=== PATIENT | female | born 1950 | race Caucasian/White ===

== ENCOUNTER → 2016-09-21 | Outpatient (CLI) | payer MEDICARE ==
[~2016-09-21] MED LIST: ALBUTEROL17 GM INH; ALPRAZOLAM PO; AMIODARONE; AMOXICILLIN500 M1 PO; CALCIUM 500 +1 EAC2 PO; CLEOCIN150 MG; DAYPRO600 M1; DEXAMETHASONE4 MG PO; DICLOFENAC PO; FLEXERIL PO; FLEXERIL10 MG; FOSAMAX70 MG PO; LOPRESSOR PO; LORTAB 5-325 M1 EACH PO; LOVASTATIN10 MG PO; NEURONTIN100 MG PO; PERCOCET; PHENERGAN25 MG; SERTRALINE HCL100 M1 PO; WARFARIN SODIUM3 M1 PO; ZOLOFT100 MG; ZYRTEC10 M2 PO
--- NOTE | ~2016-09-21 | CT57 ---
[facility] A Service of [facility] & [facility] RADIOLOGY TEXT RESULTS PATIENT: TRINA MONTERROSO LOCATION: [facility] : 51 UNIT #: [id number] AGE: [address]: Kevin Ellsworth MD SEX: F ORDER DR: [id number] [address] [address] [id number] O MR#: [id number] Acc #: [id number] NAME: TRINA MONTERROSO : 1950 SEX: F STUDY DATE/TIME: 09/21/2016 13:34 UNIT: [facility] ROOM: STUDY DESCRIPTION: CT Chest Wo Cont Attending Physician: Kevin Ellsworth M.D. Referring Physician: Kevin Ellsworth M.D. Ordering Physician: Kevin Ellsworth M.D. Primary Care Physician: Kevin Ellsworth M.D. MEDICAL IMAGING REPORT This report is preliminary unless electronic signature is present. EXAM Chest CT no contrast 09/21/2016 INDICATIONS Lung mass on recent chest x-ray. History of pneumonia in June. No history of malignancy. TECHNIQUE Noncontrast CT of the chest was performed. Correlation is made with chest x-ray 09/17/2016. This CT exam was performed with one or more of the following radiation dose reduction techniques: automatic exposure control, adjustment of mA and/or kV according to patient size, and iterative reconstruction. FINDINGS CT Chest: Examination is abnormal. There is a cavitary mass in the superior segment of the right lower lobe with an air-fluid level within it. The posterior margin of the mass abuts the pleura. The mass is of mixed attenuation on CT without calcifications. Dimension 6.8 x 7.9 x 8.1 cm. The mass has enlarged compared to a more distant chest x-ray performed in July 2016. While this could potentially represent a worsening pulmonary infection such as a pulmonary abscess, findings may also reflect primary bronchogenic carcinoma and cavitating malignancy related to tumor necrosis or squamous cell carcinoma. The superior medial margin of the mass is intimately associated with the lower lobe bronchus and bronchoscopy would likely yield additional diagnostic information. Despite the size of the mass, there is no significant adenopathy in the mediastinum. There are subcentimeter short-axis lymph nodes in the mediastinum and hilar stations. Probable trace fluid in the pericardial recess. PET CT may ultimately be useful for further assessment based upon bronchoscopy results. [facility] A Service of [facility] & [facility] RADIOLOGY TEXT RESULTS PATIENT: TRINA MONTERROSO LOCATION: [facility] : 51 UNIT #: [id number] AGE: [address]: Kevin Ellsworth MD SEX: F ORDER DR: Included thyroid unremarkable. No pericardial effusion or axillary adenopathy. Aorta demonstrates no aneurysm. Included upper abdomen is unremarkable. The left lung is clear. There are tiny calcified granulomas. No pleural effusion. There is mild emphysema. Osseous structures demonstrate no suspicious bone lesion. IMPRESSION 1. Abnormal examination demonstrating a cavitary mass in the right lower lobe measuring up to 8.1 cm. Differential considerations include both inflammatory/infectious etiologies such as pulmonary abscess or potentially primary bronchogenic carcinoma as described above. Granulomatous disease including tuberculosis felt to be less likely. Bronchoscopy would likely be useful for further assessment and complementary for reasons described above along with potentially a PET CT based upon bronchoscopy findings. 2. No significant adenopathy identified. 3. Background changes of mild emphysema and old healed granulomatous disease. 1. Dictated by... Michael Bell M.D. THIS IS AN ELECTRONICALLY VERIFIED REPORT Michael Bell M.D. at 09/22/2016 5:03 PM An TD: 09/22/2016 09:34 JOB #: [id number] MEDICAL IMAGING REPORT Page 1 of 1
== END | disposition home or self-care (01) ==
LOC: SCT 13:23
DX: R91.8 Other nonspecific abnormal finding of lung field (principal)
CPT/HCPCS: 71250

== ENCOUNTER → 2016-10-13 | Outpatient (CLI) | payer MEDICARE ==
--- NOTE | ~2016-10-13 | CR71 ---
[facility] A Service of [facility] & [facility] RADIOLOGY TEXT RESULTS PATIENT: TRINA MOTNERROSO LOCATION: [facility] : 51 UNIT #: [id number] AGE: [address]: Warren Vizcaino MD SEX: F ORDER DR: [id number] [facility] [address] [place], [place] [address] [id number] O MR#: [id number] Acc #: [id number] NAME: TRINA MONTERROSO. : 1950 SEX: F STUDY DATE/TIME: 10/13/2016 9:14 UNIT: [facility] ROOM: STUDY DESCRIPTION: CR Chest Single View Attending Physician: Warren Vizcaino M.D., Ph.D. Ordering Physician: Warren Vizcaino M.D., Ph.D. Primary Care Physician: Kevin Ellsworth M.D. MEDICAL IMAGING REPORT This report is preliminary unless electronic signature is present EXAM Portable chest, one-view HISTORY Status post right lung biopsy. COMPARISON Chest radiograph dated 09/17/2016. FINDINGS Findings are normal. No evidence of pneumothorax following right lung nodule aspiration. Dictated by... Navi Del Toro M.D. THIS IS AN ELECTRONICALLY VERIFIED REPORT Navi Del Toro M.D. at 10/18/2016 10:40 AM LESLEE/juan m TD: 10/13/2016 11:56 JOB #: [id number] MEDICAL IMAGING REPORT Page 1 of 1 COPY
--- NOTE | ~2016-10-13 | CT134 ---
[facility] A Service of [facility] & [facility] RADIOLOGY TEXT RESULTS PATIENT: TRINA MONTERROSO LOCATION: [facility] : 51 UNIT #: [id number] AGE: [address]: Warren Vizcaino MD SEX: F ORDER DR: [id number] [facility] [address] [place], [place] [address] [id number] O MR#: [id number] Acc #: [id number] NAME: TRINA MONTERROSO : 1950 SEX: F STUDY DATE/TIME: 10/13/2016 7:57 UNIT: [facility] ROOM: STUDY DESCRIPTION: CT Guide Attending Physician: Warren Vizcaino M.D., Ph.D. Ordering Physician: Warren Vizcaino M.D., Ph.D. Primary Care Physician: Kevin Ellsworth M.D. MEDICAL IMAGING REPORT This report is preliminary unless electronic signature is present EXAM CT-guided lung aspiration 10/13/2016 HISTORY Cystic lung mass. PROCEDURE Informed consent was obtained. A skin site was selected with CT guidance. Fentanyl and Versed were administered for IV conscious sedation with hemodynamic monitoring provided by the nursing staff throughout the procedure. After sterile preparation, draping, local anesthesia, a Yueh needle catheter was used and gross pus was aspirated from a cystic right lung mass. About 60 mL of gross pus was aspirated and a specimen sent for microbiologic evaluation. There are no immediate postprocedure complications. Total sedation time 15 minutes. IMPRESSION 1. Successful CT-guided aspiration from a cystic right lung mass with aspiration of about 60 mL of gross pus. Specimen sent for microbiologic evaluation. There were no immediate complications. 2. Because of the nature of the aspirate no core specimen was obtained at this time. Dictated by... Navi Del Toro M.D. THIS IS AN ELECTRONICALLY VERIFIED REPORT Navi Del Toro M.D. at 10/18/2016 10:39 AM LESLEE/kerry TD: 10/13/2016 15:19 JOB #: [id number] [facility] A Service of [facility] & [facility] RADIOLOGY TEXT RESULTS PATIENT: TRINA MONTERROSO LOCATION: [facility] #: [id number] : 51 UNIT #: [id number] AGE: [address]: Warren Vizcaino MD SEX: F ORDER DR: MEDICAL IMAGING REPORT Page 1 of 1 COPY
[2016-10-13 06:19] LABS: HEMATOCRIT 36.1 % (35.0-45.0); HEMOGLOBIN 11.7 gm/dL (12.0-16.0); MEAN CELL VOLUME 82.5 FL (83-96); MEAN CORPUSCULAR HEMOGLOBIN 26.6 PG (28-34); MEAN CORPUSCULAR HGB CONC 32.2 g/dL (30-36); MEAN PLATELET VOLUME 7.7 FL (6.5-11.5); RED BLOOD COUNT 4.38 X10e (3.90-5.30); RED CELL DISTRIBUTION WIDTH 15.5 % (11.0-15.5); WHITE BLOOD COUNT 29.5 X10e3 (4.0-10.5)
[2016-10-13 06:31] LABS: INR 1.1; PARTIAL THROMBOPLASTIN TIME 28.5 SECONDS (23.5-31.3); PROTHROMBIN TIME (PATIENT) 11.3 SECONDS (9.6-11.5)
== END | disposition home or self-care (01) ==
LOC: CIVR 05:45
PROVIDERS: Internal Medicine Hematology & Oncology
DX: C34.31 Malignant neoplasm of lower lobe, right bronchus or lung (principal); J44.9 Chronic obstructive pulmonary disease, unspecified; Z88.1 Allergy status to other antibiotic agents; Z88.5 Allergy status to narcotic agent; Z91.012 Allergy to eggs
CPT/HCPCS: 36415; 71010; 77012; 85027; 85610; 85730; 87070; 87205; J2250; J3010

== ENCOUNTER → 2016-11-15 | Outpatient (CLI) | payer MEDICARE ==
--- NOTE | ~2016-11-15 | CR63 ---
[facility] A Service of [facility] & [facility] RADIOLOGY TEXT RESULTS PATIENT: TRINA MONTERROSO LOCATION: [facility] : 51 UNIT #: [id number] AGE: [address]: Warren Vizcaino MD SEX: F ORDER DR: [id number] [facility] [address] [place], [place] [address] [id number] O MR#: [id number] Acc #: [id number] NAME: TRINA MONTERROSO. : 1950 SEX: F STUDY DATE/TIME: 11/15/2016 12:35 UNIT: [facility] ROOM: STUDY DESCRIPTION: CR Chest 2 View Attending Physician: Warren Vizcaino M.D., Ph.D. Referring Physician: Warren Vizcaino M.D., Ph.D. Ordering Physician: Warren Vizcaino M.D., Ph.D. Primary Care Physician: Kevin Ellsworth M.D. MEDICAL IMAGING REPORT This report is preliminary unless electronic signature is present EXAM Chest 2 views 11/15/2016 1235 hours HISTORY Follow up abnormal chest x-ray with right-sided mass or infection. Pneumonia June 13, 2016 COMPARISON Chest x-ray 10/13/2016, PET CT 10/11/2016. FINDINGS Upright PA and lateral views of the chest demonstrate normal cardiac, mediastinal and hilar contours. The area of rounded well circumscribed mass like density in the right midlung is again demonstrated. It measures 9.3 x 9.2 cm increased from 8.5 x 7.2 cm on 09/17/2016 and measurement 7.3 x 6.3 cm on 10/13/2016. There is now clear air fluid level within this structure. The lungs are otherwise clear and there is no dependent pleural effusion. This right lung lesion was aspirated under CT guidance yielding grossly purulent material suggesting this is most likely an abscess although a necrotic infected tumor could have this appearance. IMPRESSION Interval increase in the rounded soft tissue masslike structure with air-fluid level in the supra segment right lower lobe since the film of 10/13/2016, 07/16/2016 and 09/2016. A clear air fluid level is present. It currently measures 9.2 x 9.2 x 8.4 cm, previously 7.3 x 6.3 cm on 10/13/2016. CT aspirate on 10/13/2016 yielded grossly purulent material. Ongoing lung abscess is favored although a necrotic tumor could have this appearance. There is no adenopathy or pleural fluid elsewhere. The lungs are otherwise clear. Dictated by... Perla Maza M.D. [facility] A Service of [facility] RADIOLOGY TEXT RESULTS PATIENT: TRINA MONTERROSO [id number] 51 UNIT #: [id number] AGE: [address]: Warren Vizcaino MD SEX: F ORDER DR: THIS IS AN ELECTRONICALLY VERIFIED REPORT Perla Maza M.D. at 11/16/2016 2:31 PM Neema TD: 11/15/2016 13:05 JOB #: [id number] MEDICAL IMAGING REPORT Page 1 of 1 COPY
== END | disposition home or self-care (01) ==
LOC: CRAD 12:17
DX: C34.31 Malignant neoplasm of lower lobe, right bronchus or lung (principal); R91.8 Other nonspecific abnormal finding of lung field
CPT/HCPCS: 71020

== ENCOUNTER → 2016-12-24 | Outpatient (CLI) | payer MEDICARE, OTHER ==
--- NOTE | ~2016-12-24 | CR63 ---
[facility] A Service of [facility] & [facility] RADIOLOGY TEXT RESULTS PATIENT: TRINA MONTERROSO LOCATION: [facility] : 51 UNIT #: [id number] AGE: [address]: Keke Gaines APRN SEX: F ORDER DR: [id number] [facility] [address] [place], [place] [address] [id number] O MR#: [id number] Acc #: [id number] NAME: TRINA MONTERROSO : 1950 SEX: F STUDY DATE/TIME: 12/24/2016 12:18 UNIT: [facility] ROOM: STUDY DESCRIPTION: CR Chest 2 View Attending Physician: Keke Gaines A.P.R.N. Referring Physician: Keke Gaines A.P.R.N. Ordering Physician: Keke Gaines A.P.R.N. Primary Care Physician: Kevin Ellsworth M.D. MEDICAL IMAGING REPORT This report is preliminary unless electronic signature is present EXAM PA and lateral chest. HISTORY Lung cancer. Postop lung surgery, 1 month ago. FINDINGS Opacification of the lower two-thirds of the right hemithorax with air-fluid level in the right upper chest. Increasing volume of fluid in the right hemithorax as compared to 12/10/2016. Findings suggest right pneumonectomy. No aerated right lung is identified. Slightly increased mediastinal shift to the right since the prior exam. New mild patchy subsegmental infiltrate in the inferolateral left lower lung. Although, nonspecific this could be due to subsegmental pneumonia. Left subclavian pacer leads extend into the region of the right atrium and the right ventricle. IMPRESSION 1. New mild subsegmental patchy infiltrate or atelectasis in the inferolateral left lower lung compared to 12/10/2016. 2. Increasing volume of fluid in the right hemithorax with air-fluid level at the upper third of the right hemithorax. Findings could be secondary to right pneumonectomy. No aerated right lung is identified. Slightly increased mediastinal shift to the right compared to the prior exam. Dictated by... Chepe Gould M.D. THIS IS AN ELECTRONICALLY VERIFIED REPORT Chepe Gould M.D. at 12/25/2016 10:08 PM [facility] A Service of [facility] RADIOLOGY TEXT RESULTS PATIENT: TRINA MONTERROSO LOCATION: [facility] #: [id number] : 51 UNIT #: [id number] AGE: [address]: Keke Gaines APRN SEX: F ORDER DR: Lilia TD: 12/25/2016 17:16 JOB #: [id number] MEDICAL IMAGING REPORT Page 1 of 1 COPY
== END | disposition home or self-care (01) ==
LOC: CRAD 11:57
DX: C34.90 Malignant neoplasm of unspecified part of unspecified bronchus or lung (principal)
CPT/HCPCS: 71020

== ENCOUNTER → 2016-12-30 | Outpatient (CLI) | payer MEDICARE, OTHER ==
--- NOTE | ~2016-12-30 | CR63 ---
[facility] A Service of [facility] RADIOLOGY TEXT RESULTS PATIENT: TRINA MONTERROSO LOCATION: [facility] : 51 UNIT #: [id number] AGE: [address]: Thor Cross MD SEX: F ORDER DR: [id number] [facility] [address] [place], [place] [address] [id number] O MR#: [id number] Acc #: [id number] NAME: TRINA MONTERROSO : 1950 SEX: F STUDY DATE/TIME: 12/31/2016 UNIT: [facility] ROOM: STUDY DESCRIPTION: CR Chest 2 View Attending Physician: Thor Cross M.D. Referring Physician: Thor Cross M.D. Ordering Physician: Thor Cross M.D. Primary Care Physician: Kevin Ellsworth M.D. MEDICAL IMAGING REPORT This report is preliminary unless electronic signature is present EXAM Chest 2 views 12/30/2016 1242 hours. HISTORY Right pneumonectomy for right lung carcinoma. Cough and congestion for 8 months. COMPARISON 12/27/2016 FINDINGS Upright PA and lateral views of the chest demonstrate the right pneumonectomy change with appropriate shift of heart and mediastinum to the right. There is air-fluid level in the upper right hemithorax similar to prior study. Patchy density in the left midlung has decreased. IMPRESSION 1. Stable right pneumonectomy surgical changes. 2. Hyperinflation of the left lung with near complete resolution of patchy airspace density from the mid to lower lung, as compared to 12/27/2016. No left effusion is seen. Dictated by... Perla Maza M.D. THIS IS AN ELECTRONICALLY VERIFIED REPORT Perla Maza M.D. at 12/31/2016 2:31 PM Candice TD: 12/31/2016 12:51 JOB #: [id number] [facility] A Service of [facility] RADIOLOGY TEXT RESULTS PATIENT: TRINA MONTERROSO [id number] : 51 UNIT #: [id number] AGE: [address]: Thor Cross MD SEX: F ORDER DR: MEDICAL IMAGING REPORT Page 1 of 1 COPY
[2016-12-30 12:44] LABS: HEMATOCRIT 38.1 % (35.0-45.0); HEMOGLOBIN 12.3 gm/dL (12.0-16.0); MEAN CELL VOLUME 86.2 FL (83-96); MEAN CORPUSCULAR HEMOGLOBIN 27.7 PG (28-34); MEAN CORPUSCULAR HGB CONC 32.2 g/dL (30-36); MEAN PLATELET VOLUME 8.4 FL (6.5-11.5); RED BLOOD COUNT 4.42 X10e (3.90-5.30); RED CELL DISTRIBUTION WIDTH 18.2 % (11.0-15.5); WHITE BLOOD COUNT 18.2 X10e3 (4.0-10.5)
[2016-12-30 13:08] LABS: BUN/CREATININE RATIO 18.88; CALCIUM SERUM 9.5 mg/dL (8.4-10.2); CREATININE SERUM 0.9 mg/dL (0.6-1.4); GLOM FILT RATE Estimated 67.1 mL/min (>60); POTASSIUM 4.2 mmol/L (3.5-5.1)
== END | disposition home or self-care (01) ==
LOC: CLAB 11:33
PROVIDERS: Surgery
DX: J18.9 Pneumonia, unspecified organism (principal); J98.4 Other disorders of lung; Z90.2 Acquired absence of lung [part of]
CPT/HCPCS: 36415; 71020; 80048; 85027; 87070; 87205

== ENCOUNTER → 2017-02-01 | Outpatient (CLI) | payer MEDICARE, OTHER ==
--- NOTE | ~2017-02-01 | BD1 ---
[facility] A Service of [facility] & [facility] RADIOLOGY TEXT RESULTS PATIENT: TRINA MONTERROSO LOCATION: [facility] : 51 UNIT #: [id number] AGE: [address]: Kevin Ellsworth MD SEX: F ORDER DR: [id number] [facility] [address] [place], [place] [address] [id number] O MR#: [id number] Acc #: [id number] NAME: TRINA MONTERROSO : 1950 SEX: F STUDY DATE/TIME: 02/01/2017 12:01 UNIT: [facility] ROOM: STUDY DESCRIPTION: BD Dexa Bone Dens 1+ Site Attending Physician: Kevin Ellsworth M.D. Referring Physician: Kevin Ellsworth M.D. Ordering Physician: Kevin Ellsworth M.D. Primary Care Physician: Kevin Ellsworth M.D. MEDICAL IMAGING REPORT This report is preliminary unless electronic signature is present EXAM DXA scan, 02/01/2017 HISTORY Status post menopause with no hormone replacement therapy. Osteopenia. Hypertension with blood pressure medication for 2 months. Smoking history for 40 years. FINDINGS Bone mineral density in the lumbar spine from L1 through L4 is 0.703 g/cm2 which is 3.1 standard deviations below the mean when compared to the young adult reference population which is characteristic of osteoporosis. This is 1.3 standard deviations below the mean when compared to the age-matched population. Bone mineral density in the left femoral neck was 0.562 g/cm2 which is 2.6 standard deviations below the mean when compared to the young adult reference population which is characteristic of osteoporosis. This is 1 standard deviation below the mean when compared to the age-matched population. IMPRESSION Bone mineral density in the lumbar spine and the left hip characteristic of osteoporosis. Dictated by... Ritesh Mcelroy M.D. THIS IS AN ELECTRONICALLY VERIFIED REPORT Ritesh Mcelroy M.D. at 02/02/2017 2:21 PM CARLA/annalisa STS. [facility] A Service of [facility] & [facility] RADIOLOGY TEXT RESULTS PATIENT: TRINA MONTERROSO LOCATION: [facility] : 51 UNIT #: [id number] AGE: [address]: Kevin Ellsworth MD SEX: F ORDER DR: TD: 02/02/2017 00:19 JOB #: [id number] MEDICAL IMAGING REPORT Page 1 of 1 COPY
== END | disposition home or self-care (01) ==
LOC: CWCC 11:45
DX: M18.0 Bilateral primary osteoarthritis of first carpometacarpal joints (principal); Z78.0 Asymptomatic menopausal state
CPT/HCPCS: 77080

== ENCOUNTER → 2017-02-15 | Outpatient (CLI) | payer MEDICARE, OTHER ==
--- NOTE | ~2017-02-15 | CT55 ---
[facility] A Service of [facility] RADIOLOGY TEXT RESULTS PATIENT: TRINA MONTERROSO LOCATION: [facility] : 51 UNIT #: [id number] AGE: [address]: Warren Vizcaino MD SEX: F ORDER DR: [id number] [facility] [address] [place], [place] [address] [id number] O MR#: [id number] Acc #: [id number] NAME: TRINA MONTERROSO : 1950 SEX: F STUDY DATE/TIME: 02/16/2017 UNIT: [facility] ROOM: STUDY DESCRIPTION: CT Chest W Con Attending Physician: Warren Vizcaino M.D., Ph.D. Referring Physician: Warren Vizcaino M.D., Ph.D. Ordering Physician: Warren Vizcaino M.D., Ph.D. Primary Care Physician: Kevin Ellsworth M.D. MEDICAL IMAGING REPORT This report is preliminary unless electronic signature is present EXAM Chest CT with contrast 02/15/2017 1454 hours CLINICAL HISTORY 66-year-old woman with newly diagnosed lung carcinoma, November 2016. No treatment yet. Followup. Patient complains of cough since November. Quit smoking [address] chest 09/21/2016, PET CT 10/11/[address] biopsy image 10/13/[address] images were obtained from the thoracic inlet through the adrenal glands. Sagittal and coronal reconstructions were performed. Contrast was Isovue-370 70 mL IV. Total exam DLP 833 mGy-cm. FINDINGS Images through the thoracic inlet demonstrate no thyroid lesion or supraclavicular adenopathy. Images through the chest demonstrate interval right pneumonectomy change with volume loss in the right hemithorax and fluid opacification of the right hemithorax. There is a slightly nodular area in the pleura posteriorly adjacent to the area of osteotomy through the ribs. This density measures 7 mm and is felt most likely to be reactive given its proximity to the thoracotomy site. Attention to this area on follow up is recommended (image 20). There is no pathologic adenopathy. The left lung demonstrates underlying emphysematous change. There is some ground-glass density at the left posterior lung base new from the prior exam. Atelectasis or inflammation is favored. No discrete nodule is seen. There is no left effusion. The esophagus is normal. [facility] A Service of [facility] RADIOLOGY TEXT RESULTS PATIENT: TRINA MONTERROSO LOCATION: [facility] : 51 UNIT #: [id number] AGE: [address]: Warren Vizcaino MD SEX: F ORDER DR: Limited views through the upper abdomen demonstrate no liver lesion in the visualized portions of the liver. The adrenal glands are normal. There are a few tiny right retrocrural lymph nodes which are stable. Attention to these on follow up is recommended. Bone window images demonstrate a compression fracture at T7 with vertebra plana appearance new from 09/21/2016 CT. There was a mottled uptake in the spine on the PET CT. This appearance is concerning for bone metastasis. Consider further evaluation with either bone scan to search for other metastases or thoracic spine MRI to assess this level. IMPRESSION 1. Interval right pneumonectomy for lung carcinoma with fluid opacification of the right hemithorax and no pathologic adenopathy. There is minimal nodularity in the pleura posteriorly in the mid hemithorax adjacent to the osteotomy sites of the ribs felt likely to represent reactive, healing change. Attention to this on follow up is recommended. 2 The left lung is hyperinflated with patchy ground-glass densities in the periphery of the left lung base. Atelectasis or infection is favored. There is no pleural effusion. 3. There is a new compression fracture at T7 with vertebra plana appearance. This is not seen on prior CT chest 09/21/[address] 10/11/2016. There is minimal mottled uptake in the spine on the prior PET CT. Metastasis to bone cannot be excluded. Consider further evaluation with either bone scan to search for distant metastases in the bone or MRI to assess this lesion or adjacent thoracic vertebral bodies. Dictated by... Perla Maza M.D. THIS IS AN ELECTRONICALLY VERIFIED REPORT Perla Maza M.D. at 02/16/2017 2:30 PM SMM/cmm TD: 02/16/2017 13:58 JOB #: [id number] MEDICAL IMAGING REPORT Page 1 of 1 COPY
[2017-02-15 18:06] LABS: POC - CREATININE 0.92 mg/dL (0.44-1.03); POC - GFR >60.0 mL/min (>60)
== END | disposition home or self-care (01) ==
LOC: CCAT 12:56
PROVIDERS: Internal Medicine Hematology & Oncology
DX: Z08 Encounter for follow-up examination after completed treatment for malignant neoplasm (principal); R91.8 Other nonspecific abnormal finding of lung field; J98.4 Other disorders of lung; M48.54XA Collapsed vertebra, not elsewhere classified, thoracic region, initial encounter for fracture; Z85.118 Personal history of other malignant neoplasm of bronchus and lung
CPT/HCPCS: 71260; 82565; Q9967